=== PATIENT | female | born 1995 ===

== ENCOUNTER 2016-10-11 20:34 | Emergency (ER) | payer SELFPAY ==
[2016-10-11 20:39] VITALS: BP 140/81; PULSE 73; RESP 16; TEMP 99; O2SAT 100
[2016-10-11] MEDS ORDERED: Sodium Chloride 0.9% 1,000 ML IV STA (20:50)
[2016-10-11] MEDS ORDERED: Alum-Mag Hydrox-Simethicone Susp (30 mL) PO STA (20:50)
[2016-10-11] MEDS ORDERED: Alum-Mag Hydrox-Simethicone Susp (30 mL) ONE (21:10)
[2016-10-11 21:20] LABS: BASO # 0.1 K/uL (0.0-0.2); BASO % 0.8 % (0.0-2.0); EOS # 0.1 K/uL (0.0-0.7); EOS % 1.1 % (0.0-4.0); HEMATOCRIT 41.1 % (34.0-47.0); LYMPH # 3.4 K/uL (1.0-4.3); LYMPH % 29.2 % (20.0-40.0); MEAN CELL VOLUME 89.9 fl (81.0-99.0); MEAN CORPUSCULAR HEMOGLOBIN 30.1 pg (27.0-31.0); MEAN CORPUSCULAR HGB CONC 33.5 g/dL (33.0-37.0); MEAN PLATELET VOLUME 8.1 fl (7.2-11.7); MONO # 0.8 K/uL (0.0-0.8); NEUT # 7.3 K/uL (1.8-7.0); NEUT % 61.9 % (50.0-75.0); WHITE BLOOD COUNT 11.8 K/uL (4.8-10.8)
[2016-10-11 21:31] LABS: ALB/GLOB RATIO 1.3 (1.0-2.1); ALKALINE PHOSPHATASE 89 U/L (38-126); ALT/SGPT 32 U/L (9-52); AST/SGOT 30 U/L (14-36); BILIRUBIN,TOTAL 1.1 mg/dl (0.2-1.3); BLOOD UREA NITROGEN 16 mg/dl (7-17); CALCIUM 9.9 mg/dL (8.4-10.2); CARBON DIOXIDE 24 mmol/L (22-30); CHLORIDE 103 mmol/L (98-107); GFR AFRICAN-AMERICAN > 60; GLUCOSE,RANDOM 108 mg/dL (65-105); LIPASE 108 U/L (23-300); POTASSIUM 3.7 MMOL/L (3.6-5.0); SODIUM 140 mmol/l (132-148); TOTAL PROTEIN 7.8 G/DL (6.3-8.2)
[2016-10-11 21:34] LABS: RBC URINE 5 /hpf (0-3); URINE BILIRUBIN NEGATIVE (NEGATIVE); URINE BLOOD NEGATIVE (NEGATIVE); URINE COLOR YELLOW (YELLOW); URINE GLUCOSE (UA) NEG (Normal); URINE KETONE NEGATIVE (NEGATIVE); URINE LEUKOCYTE ESTERASE MOD Leu/uL (Negative); URINE PROTEIN 30 mg/dL (NEGATIVE); URINE UROBILINOGEN 0.2-1.0 mg/dL (0.2-1.0); WBC URINE 7 /hpf (0-5)
--- NOTE | 2016-10-11 22:27 | ED PDOC ---
HPI: Abdomen Time Seen by Provider: 10/11/16 20:41 Chief Complaint (Nursing): Abdominal Pain Chief Complaint (Provider): RUQ pain x 3 days, dysuria x 1 day History Per: Patient History/Exam Limitations: no limitations Onset/Duration Of Symptoms: Days Outside of [place] travel?: No Current Symptoms Are (Timing): Still Present Context: Food (Pt reports nausea and cramping epigastric pain after eating ) Location Of Pain/Discomfort: RUQ, Epigastric Quality Of Discomfort: Cramping Associated Symptoms: Nausea, Vomiting. denies: Fever, Chills, Loss Of Appetite Exacerbating Factors: Food Past Medical History Reviewed: Historical Data, Nursing Documentation, Vital Signs Vital Signs: Last Vital Signs Temp 99.0 F 10/11/16 20:37 Pulse 73 10/11/16 20:37 Resp 16 10/11/16 20:37 BP 140/81 10/11/16 20:37 Pulse Ox 100 10/11/16 22:27 - Medical History PMH: No Chronic Diseases - Surgical History Surgical History: No Surg Hx - Family History Family History: States: No Known Family Hx - Living Arrangements Living Arrangements: With Family - Social History Current smoker - smoking cessation education provided: No - Home Medications Home Medications: Ambulatory Orders Medication Instructions Recorded Famotidine [Pepcid] 20 mg PO BID #28 tab 10/12/16 - Allergies Allergies/Adverse Reactions: Allergies Allergy/AdvReac Type Severity Reaction Status Date / Time PORK Allergy RASH Verified 10/11/16 20:36 Review of Systems ROS Statement: Except As Marked, All Systems Reviewed And Found Negative Constitutional: Negative for: Fever, Chills Gastrointestinal: Positive for: Nausea, Vomiting, Abdominal Pain Physical Exam - Reviewed Nursing Documentation Reviewed: Yes Vital Signs Reviewed: Yes - Physical Exam Appears: Positive for: Well, Non-toxic, No Acute Distress Head Exam: Positive for: ATRAUMATIC, NORMAL INSPECTION, NORMOCEPHALIC Skin: Positive for: Normal Color, Warm, DRY Eye Exam: Positive for: Normal appearance ENT: Positive for: Normal ENT Inspection Neck: Positive for: Normal, Painless ROM Cardiovascular/Chest: Positive for: Regular Rate, Rhythm Respiratory: Positive for: Normal Breath Sounds. Negative for: Accessory Muscle Use, Respiratory Distress Gastrointestinal/Abdominal: Positive for: Bowel Sounds, Soft, Tenderness ( Epigastric, RUQ) Back: Positive for: Normal Inspection Extremity: Positive for: Normal ROM Neurologic/Psych: Positive for: Alert, Oriented - Laboratory Results Result Diagrams: 10/11/16 21:09 10/11/16 21:09 - ECG O2 Sat by Pulse Oximetry: 100 Medical Decision Making Medical Decision Making: US - Normal (+) leuks (+) squamous cells - No urinary symptoms. Disposition - Clinical Impression Clinical Impression: Gastritis - Disposition Disposition: Routine/Home Disposition Time: 00:50 Condition: GOOD Prescriptions: Famotidine [Pepcid] 20 mg PO BID #28 tab Instructions: Gastritis (ED)
--- NOTE | 2016-10-12 00:18 | US ---
EXAM: US Abdomen Limited, Right Upper Quadrant CLINICAL HISTORY: 20 years old, female; Pain; Abdominal pain; Other: Ruq; Additional info: Ruq pain, nausea TECHNIQUE: Real-time ultrasound of the right upper quadrant with image documentation. COMPARISON: No relevant prior studies available. FINDINGS: Liver: Unremarkable as visualized. Gallbladder: Contracted. Limited evaluation. Common bile duct: No dilation. Pancreas: Unremarkable as visualized. Right kidney: Measured at 13.3 cm. No hydronephrosis. IMPRESSION: Gallbladder contracted, patient ate 3 hours prior. No acute sonographic abnormality is visualized. Correlate clinically. Followup as warranted.
== END 2016-10-12 01:03 | disposition home or self-care (01) ==
LOC: H.ER 20:34
DX: K29.70 Gastritis, unspecified, without bleeding (principal)
CPT/HCPCS: 76705; 80053; 81003; 83690; 85025; 87086; 96360; 99283; J2405; J7040